=== PATIENT | male | born 1965 | race Caucasian/White ===

== ENCOUNTER 2023-10-24 08:32 | Day surgery (SDC) | payer OTHER ==
[~2023-10-24] VITALS: Ht 170.2 cm; Wt 81.6 kg
[2023-10-24] MEDS ORDERED: fentaNYL CITRATE/PF 100 MCG/2 ML AMP ONE (09:11)
[2023-10-24] MEDS ORDERED: ONDANSETRON HCL 4 MG/2 ML VIAL ONE (09:11)
[2023-10-24] MEDS ORDERED: DIPHENHYDRAMINE INJ 50 MG/ML VIAL ONE (09:11)
[2023-10-24] MEDS ORDERED: MIDAZOLAM HCL 5 MG/5 ML VIAL ONE (09:12)
[2023-10-24 13:46] VITALS: BP_SYST 109; PULSE 43; RESP 16; TEMP 97.7; O2SAT 97
== END 2023-10-24 12:05 | disposition home or self-care (01) ==
LOC: SDS 08:32 → SMU 08:34 → SDS 12:05
PROVIDERS: ATTEND Internal Medicine
DX: M47.26 Other spondylosis with radiculopathy, lumbar region (principal); M51.9 Unspecified thoracic, thoracolumbar and lumbosacral intervertebral disc disorder; M25.511 Pain in right shoulder; F17.200 Nicotine dependence, unspecified, uncomplicated; Z79.899 Other long term (current) drug therapy; Z53.8 Procedure and treatment not carried out for other reasons
CPT/HCPCS: 93005; J3010; J1200; J2250; J2405

== ENCOUNTER 2024-03-12 11:04 | Day surgery (SDC) | payer OTHER ==
[~2024-03-12] VITALS: Ht 172.7 cm; Wt 81.6 kg
[~2024-03-12 11:04] MED LIST: LIDOCAINE MPF 2% 20 MG/1 ML, 5 ML VIAL INH ONE
[2024-03-12 12:50] VITALS: O2SAT 96
[2024-03-12 16:32] VITALS: BP_SYST 100; PULSE 49; RESP 20
== END 2024-03-12 15:30 | disposition home or self-care (01) ==
LOC: SDS 11:04 → SMU 11:05 → SDS 15:30
PROVIDERS: ATTEND Internal Medicine
DX: M51.16 Intervertebral disc disorders with radiculopathy, lumbar region (principal); I10 Essential (primary) hypertension; F17.200 Nicotine dependence, unspecified, uncomplicated; M19.90 Unspecified osteoarthritis, unspecified site; Z79.899 Other long term (current) drug therapy
CPT/HCPCS: 62323; Q9967; J1010; 76000; J1030

== ENCOUNTER 2024-07-23 14:43 | Day surgery (SDC) | payer OTHER ==
[~2024-07-23] VITALS: Ht 170.2 cm; Wt 81.6 kg
[~2024-07-23 14:43] MED LIST changes: +IOHEXOL 300 mgI/mL, 50 mL INFUS..BTL IV ONE; +NORMAL SALINE 10 ML VIAL ONE; +methylPREDNISolone ACETATE 40 MG/ML ONE
[2024-07-23] MEDS ORDERED: fentaNYL CITRATE/PF 100 MCG/2 ML AMP ONE (15:06)
[2024-07-23] MEDS: MIDAZOLAM HCL 5 MG/5 ML VIAL ONE (15:06)
[2024-07-23 15:20] VITALS: O2SAT 98
[2024-07-23] MEDS: MIDAZOLAM HCL 5 MG/5 ML VIAL IVP ONE (15:30)
[2024-07-25 13:28] VITALS: BP_SYST 114; PULSE 55; RESP 15
== END 2024-07-23 17:30 | disposition home or self-care (01) ==
LOC: SDS 14:43 → SMU 14:43 → SDS 17:30
PROVIDERS: ATTEND Internal Medicine
DX: M51.16 Intervertebral disc disorders with radiculopathy, lumbar region (principal); M47.26 Other spondylosis with radiculopathy, lumbar region; I10 Essential (primary) hypertension; M19.90 Unspecified osteoarthritis, unspecified site; Z79.899 Other long term (current) drug therapy
CPT/HCPCS: 62323; J2250; J3010; Q9967; J1010; 76000; J1030